=== PATIENT | female | born 1935 | race Hispanic/Latino ===

== ENCOUNTER 2018-03-09 18:40 | Inpatient (IN) | payer OTHER ==
[~2018-03-09] VITALS: Ht 162.6 cm; Wt 68.0 kg
[2018-03-09] MEDS ORDERED: Morphine Sulfate 4mg/ml Inj (IV USE ONLY) IVP ONE (18:45)
--- NOTE | 2018-03-09 18:51 | Emergency Room Report ---
History of Present Illness General Chief Complaint: Multiple Trauma/Fall Source: EMS, Caregiver Present Illness HPI Patient presents with a ground-level fall onto her left side. They alleged that there was no loss of consciousness. The patient is unable to ambulate and has left hip pain at this time. The patient has a history of dementia. No further history is obtainable. H/O HTN. Allegedly no fevers, NVD. Possible UTIs in the past. Allergies: Coded Allergies: No Known Allergies (Unverified , 03/09/18) Patient History Limited by: medical condition Past Medical History: see triage record, old chart reviewed Social History: Denies: smoking, alcohol use, drug use Social History Narrative assisted-living Last Menstrual Period: NA Now: No Reviewed Nursing Documentation: PMH: Agreed; PSxH: Agreed Nursing Documentation-PMH Past Medical History: No History, Except For Hx Hypertension: Yes Review of Systems All Other Systems: limited Physical Exam Vital Signs Date Time Temp Pulse Resp B/P (MAP) Pulse Ox O2 Delivery O2 Flow Rate FiO2 03/09/18 18:29 99.0 82 18 100/58 93 Room Air 99.0 Sp02 EP Interpretation: reviewed, normal General Appearance: well appearing, no apparent distress, alert Head: normocephalic, atraumatic Eyes: bilateral eye normal inspection, bilateral eye PERRL, bilateral eye EOMI ENT: moist mucus membranes Neck: supple, no bony tend Respiratory: lungs clear, normal breath sounds Cardiovascular #1: regular rate, rhythm Cardiovascular #2: 2+ radial (R) Gastrointestinal: normal inspection, normal bowel sounds, non tender, no mass, non-distended Musculoskeletal: back normal, pelvis stable, tender - Left hip with pain with movement with external rotation Neurologic: alert, motor strength/tone normal, DTRs symmetric, sensory intact, oriented - to name only Psychiatric: anxious Skin: normal inspection, warm/dry Medical Decision Making Diagnostic Impression: Primary Impression: Closed left hip fracture Qualified Codes: S72.002A - Fracture of unspecified part of neck of left femur , initial encounter for closed fracture Additional Impressions: Leukocytosis Qualified Codes: D72.829 - Elevated white blood cell count, unspecified Renal insufficiency Hyperglycemia ER Course Patient presents after a ground-level fall with external rotation and tenderness of the left hip. Differential includes contusion, hip fracture, pelvic fracture amongst others. The pelvis is stable and clinically this appears to be a hip fracture. Evaluation will be with EKG, chest x-ray and local x-rays with labs. A Zhou catheter will be placed for comfort. The patient will also be treated with morphine and Zofran. EKG without injury. CXR tortuous aorta. Pelvis and L hip with comminuted intratrochanteric fracture. Femur with abnormal appearance. WBC elevated. Elevated glucose and renal insufficiency. Presented to Dr. Lantigua who wants patient treated at our facility. Discussed with Dr. Reno. He requests no antibiotics for leukocytosis. No source of cause of elevated WBC. Images sent to Dr. Ramirez for consultation. Admit med. Laboratory Tests Test 03/09/18 19:50 03/09/18 21:10 03/09/18 21:16 White Blood Count 23.0 K/UL (4.8-10.8) *H Red Blood Count 3.34 M/UL (4.20-5.40) L Hemoglobin 11.3 G/DL (12.0-16.0) L Hematocrit 31.7 % (37.0-47.0) L Mean Corpuscular Volume 95 FL (80-99) Mean Corpuscular Hemoglobin 33.7 PG (27.0-31.0) H Mean Corpuscular Hemoglobin Concent 35.5 G/DL (32.0-36.0) Red Cell Distribution Width 11.0 % (11.6-14.8) L Platelet Count 243 K/UL (150-450) Mean Platelet Volume 6.6 FL (6.5-10.1) Neutrophils (%) (Auto) % (45.0-75.0) Lymphocytes (%) (Auto) % (20.0-45.0) Monocytes (%) (Auto) % (1.0-10.0) Eosinophils (%) (Auto) % (0.0-3.0) Basophils (%) (Auto) % (0.0-2.0) Differential Total Cells Counted 100 Neutrophils % (Manual) 89 % (45-75) H Lymphocytes % (Manual) 6 % (20-45) L Monocytes % (Manual) 2 % (1-10) Eosinophils % (Manual) 0 % (0-3) Basophils % (Manual) 1 % (0-2) Band Neutrophils 2 % (0-8) Platelet Estimate Adequate Platelet Morphology Normal Red Blood Cell Morphology Normal Sodium Level 135 MMOL/L (136-145) L Potassium Level 4.1 MMOL/L (3.5-5.1) Chloride Level 100 MMOL/L (98-107) Carbon Dioxide Level 23 MMOL/L (21-32) Anion Gap 12 mmol/L (5-15) Blood Urea Nitrogen 31 mg/dL (7-18) H Creatinine 1.8 MG/DL (0.55-1.30) H Estimate Glomerular Filtration Rate mL/min (>60) Glucose Level 185 MG/DL (74-106) H Calcium Level 10.0 MG/DL (8.5-10.1) Total Bilirubin 0.5 MG/DL (0.2-1.0) Aspartate Amino Transferase (AST) 86 U/L (15-37) H Alanine Aminotransferase (ALT) 77 U/L (12-78) Alkaline Phosphatase 115 U/L (46-116) Total Protein 7.2 G/DL (6.4-8.2) Albumin 3.2 G/DL (3.4-5.0) L Globulin 4.0 g/dL Albumin/Globulin Ratio 0.8 (1.0-2.7) L Prothrombin Time 10.8 SEC (9.30-11.50) Prothrombin Time INR 1.0 (0.9-1.1) PTT 24 SEC (23-33) Urine Color Yellow Urine Appearance Clear Urine pH 5 (4.5-8.0) Urine Specific [place] 1.015 (1.005-1.035) Urine Protein 2+ (NEGATIVE) H Urine Glucose (UA) Negative (NEGATIVE) Urine Ketones 2+ (NEGATIVE) H Urine Blood 1+ (NEGATIVE) H Urine Nitrite Negative (NEGATIVE) Urine Bilirubin Negative (NEGATIVE) Urine Urobilinogen Normal MG/DL (0.0-1.0) Urine Leukocyte Esterase 1+ (NEGATIVE) H Urine RBC 0-2 /HPF (0 - 2) Urine WBC 0-2 /HPF (0 - 2) Urine Squamous Epithelial Cells Occasional /LPF Urine Bacteria Occasional /HPF (NONE) EKG Diagnostic Results Rate: tachycardiac ST Segments: no acute changes Rhythm Strip Diag. Results EP Interpretation: yes Rhythm: no PVC's, no ectopy, other - Sinus tachycardia Chest X-Ray Diagnostic Results Chest X-Ray Diagnostic Results : Chest X-Ray Ordered: Yes # of Views/Limited/Complete: 1 View Indication: Other EP Interpretation: Yes Interpretation: no consolidation, no effusion, no pneumothorax, other - ectatic aorta Impression: Other Electronically Signed by: Electronically signed by Jamshid Monroe MD Other X-Ray Diagnostic Results Other X-Ray Diagnostic Results #1: X-Ray ordered: pelvis # of Views/Limited Vs Complete: 1 View Indication: Pain Interpretation: no soft tissue swelling, other - hip fx, no pelvic fx Impression: Other Electronically Signed by: Electronically signed by Jamshid Monroe MD Other X-Ray Diagnostic Results #2: X-Ray ordered: L hip # of Views/Limited Vs Complete: 3 View Indication: Pain Interpretation: no soft tissue swelling, other - fx, some hellen abnormalities Impression: Other Electronically Signed by: Electronically signed by Jamshid Monroe MD Last Vital Signs Date Time Temp Pulse Resp B/P (MAP) Pulse Ox O2 Delivery O2 Flow Rate FiO2 03/09/18 23:35 98.9 103 20 90/51 100 Room Air 98.9 Status: improved Disposition: ADMITTED INPATIENT Condition: Serious Jamshid Monroe M.D. Mar 09, 2018 18:51
[2018-03-09 20:09] LABS: HEMATOCRIT 31.7 % (37.0-47.0); HEMOGLOBIN 11.3 G/DL (12.0-16.0); MEAN CORPUSCULAR VOLUME 95 FL (80-99); PLATELET COUNT 243 K/UL (150-450); RED BLOOD COUNT 3.34 M/UL (4.20-5.40)
[2018-03-09 20:37] LABS: ANION GAP 12 mmol/L (5-15); BLOOD UREA NITROGEN 31 mg/dL (7-18); CARBON DIOXIDE 23 MMOL/L (21-32); CHLORIDE 100 MMOL/L (98-107); CREATININE 1.8 MG/DL (0.55-1.30); POTASSIUM 4.1 MMOL/L (3.5-5.1); SODIUM 135 MMOL/L (136-145)
[2018-03-09 20:45] LABS: ALANINE AMINOTRANSFERASE 77 U/L (12-78); ALBUMIN 3.2 G/DL (3.4-5.0); ALBUMIN/GLOBULIN RATIO 0.8 (1.0-2.7); ALKALINE PHOSPHATASE 115 U/L (46-116); ASPARTATE AMINO TRANSFERASE 86 U/L (15-37); BILIRUBIN,TOTAL 0.5 MG/DL (0.2-1.0)
[2018-03-09] MEDS ORDERED: Morphine Sulfate 4mg/ml Inj (IV USE ONLY) ONE (21:27)
[2018-03-09 21:30] LABS: APPEARANCE,URINE CLEAR; BILIRUBIN, URINE NEGATIVE (NEGATIVE); GLUCOSE, URINE (UA) NEGATIVE (NEGATIVE); KETONES,URINE 2+ (NEGATIVE); LEUKOCYTE ESTERASE ,URINE 1+ (NEGATIVE); NITRITE,URINE NEGATIVE (NEGATIVE); PH,URINE 5 (4.5-8.0); PROTEIN,URINE 2+ (NEGATIVE); UROBILINOGEN,URINE NORMAL MG/DL (0.0-1.0)
[2018-03-09 21:32] LABS: COLOR,URINE YELLOW
[2018-03-09 21:45] VITALS: BP 93/46
[2018-03-09] MEDS ORDERED: LISINOPRIL5 MG ORAL (21:51)
[2018-03-09] MEDS ORDERED: SIMVASTATIN10 MG ORAL (21:51)
[2018-03-09] MEDS ORDERED: [UNRECOGNIZED DRUG - CODE] PO (21:51)
[2018-03-09] MEDS ORDERED: FOLIC ACID1 MG ORAL (21:51)
[2018-03-09] MEDS ORDERED: MULTIVITAMINS1 EAC2 ORAL (21:54)
[2018-03-09] MEDS ORDERED: ASPIRIN81 MG ORAL (21:54)
[2018-03-09] MEDS ORDERED: OXYBUTYNIN CHLO10 MG PO (21:54)
[2018-03-09] MEDS ORDERED: LOTRISONE CREAM15 GM TP (21:54)
[2018-03-09] MEDS ORDERED: TRIAMTERENE-HC1 EAC5 ORAL (21:54)
[2018-03-09] MEDS ORDERED: LOPROX TOPIC (21:54)
[2018-03-09 23:35] VITALS: BP 90/51
[2018-03-09] MEDS ORDERED: Norco 5mg/325mg tab ORAL PRN (23:45)
[2018-03-09] MEDS ORDERED: Morphine Sulfate 2mg/ml Inj IVP PRN (23:45)
[2018-03-10] VITALS (13 sets, daily range): BP systolic 102–149; BP diastolic 47–64
--- NOTE | 2018-03-10 00:30 | Consultation ---
DATE OF CONSULTATION: 03/09/2018 CARDIOLOGY CONSULTATION CONSULTING PHYSICIAN: Jamshid Sutton M.D. REASON: Preoperative cardiovascular risk assessment. HISTORY OF PRESENT ILLNESS: This 82-year-old female took a ground level fall landing on her left side and complaining subsequently of pain and an inability to ambulate. She was brought to the emergency room and was noted to have a left intertrochanteric left hip fracture. The patient is unable to give any detailed history as she has underlying dementia. She answer simple questions, but the reliability is unclear. There was no apparent loss of consciousness, although historical data is sparse. PAST MEDICAL HISTORY: Includes hypertension, osteoarthritis, degenerative disk disease, osteoporosis, and hyperlipidemia. MEDICATIONS: Reviewed and reconciled. ALLERGIES: None known. SOCIAL HISTORY: No record of smoking, alcohol, or substance abuse. FAMILY HISTORY: Noncontributory. REVIEW OF SYSTEMS: Limited due to dementia as outlined above. PHYSICAL EXAMINATION: GENERAL: Lying flat, in no distress. She did receive morphine earlier. She has a temperature of 99 degrees. VITAL SIGNS: Blood pressure 100/58, pulse 82, and respirations 18. HEENT: Conjunctivae are pink. Sclerae are anicteric. Oropharynx clear. Mucous membranes moist. NECK: Supple. Jugular venous pressure ludy. LUNGS: Clear. CARDIAC: Regular rhythm and rate. Normal S1, S2. A 1/6 systolic murmur at base. ABDOMEN: Soft, nontender. CHEST WALL: Without deformity. BREASTS: Without discrete masses. EXTREMITIES: There is no open wound. There is some ecchymoses on the left side. There is internal rotation of the left hip. Distal pulses palpable and good perfusion of the digits. NEUROLOGIC: Reveals moderate cognitive impairment, but no focal deficits. LABORATORY AND DIAGNOSTIC DATA: EKG, sinus tachycardia, otherwise normal. Chest x-ray, no acute process, old, healed right rib fractures. White count 23 with a left shift, hemoglobin 11.3 with MCV 95, and platelet count of 243,000. Sodium is 135, potassium 4.1, bicarbonate 23, BUN 31, and creatinine 1.8. Albumin 3.2. IMPRESSION: 1. Mechanical fall. 2. Acute left hip fracture. 3. Leukocytosis with left shift and low-grade temperature. 4. Dementia. 5. Secondary sinus tachycardia. 6. Acute kidney injury. 7. Hypovolemia and dehydration. 8. Old, healed right rib fractures. PLAN: 1. Pain control. 2. Hydration. 3. Empiric antibiotics. 4. DVT prophylaxis. 5. Metabolic profile. 6. Continued anti-platelet therapy. 7. Preoperative beta-elio to follow. Jamshid Sutton M.D. DR: GLORIA JOB#: [id number] CC: RADHA
[2018-03-10] MEDS: cefTRIAXone 1 GM in D5W 55 ML IVPB SCH (00:58)
[2018-03-10] MEDS: Albuterol/Ipratropium 3ml neb HHN SCH ×4 (01:00→19:00)
[2018-03-10] MEDS: Heparin 5000 units/ml inj SUBQ SCH ×3 (05:09→21:11)
[2018-03-10 06:00] LABS: HEMATOCRIT 30.1 % (37.0-47.0); HEMOGLOBIN 10.9 G/DL (12.0-16.0); MEAN CORPUSCULAR VOLUME 92 FL (80-99); PLATELET COUNT 217 K/UL (150-450); RED BLOOD COUNT 3.25 M/UL (4.20-5.40); WHITE BLOOD COUNT 19.5 K/UL (4.8-10.8)
[2018-03-10 06:06] LABS: ANION GAP 9 mmol/L (5-15); BLOOD UREA NITROGEN 26 mg/dL (7-18); CALCIUM 9.1 MG/DL (8.5-10.1); CARBON DIOXIDE 25 MMOL/L (21-32); CHLORIDE 104 MMOL/L (98-107); CREATININE 1.2 MG/DL (0.55-1.30); SODIUM 138 MMOL/L (136-145)
[2018-03-10 06:19] LABS: ALANINE AMINOTRANSFERASE 72 U/L (12-78); ALBUMIN 3.1 G/DL (3.4-5.0); ALBUMIN/GLOBULIN RATIO 0.8 (1.0-2.7); ALKALINE PHOSPHATASE 108 U/L (46-116); ASPARTATE AMINO TRANSFERASE 76 U/L (15-37); BILIRUBIN,TOTAL 0.5 MG/DL (0.2-1.0)
[2018-03-10] MEDS: Aspirin Baby 81mg ORAL SCH (08:36)
[2018-03-10] MEDS ORDERED: celeBREX 200mg Cap **SURGERY PATIENTS ONLY ORAL SCH (09:00)
--- NOTE | 2018-03-10 09:59 | History & Physical ---
History and Physical History & Physicial HISTORY OF PRESENT ILLNESS: This 82-year-old female took a ground level fall landing on her left side and complaining subsequently of pain and an inability to ambulate. She was brought to the emergency room and was noted to have a left intertrochanteric left hip fracture. The patient is unable to give any detailed history as she has underlying dementia. She answer simple questions, but the reliability is unclear. There was no apparent loss of consciousness, although historical data is sparse. PAST MEDICAL HISTORY: Includes hypertension, osteoarthritis, degenerative disk disease, osteoporosis, and hyperlipidemia. MEDICATIONS: Reviewed and reconciled. ALLERGIES: None known. SOCIAL HISTORY: No record of smoking, alcohol, or substance abuse. FAMILY HISTORY: Noncontributory. REVIEW OF SYSTEMS: Limited due to dementia as outlined above. PHYSICAL EXAMINATION: GENERAL: Lying flat, in no distress. She did receive morphine earlier. She has a temperature of 99 degrees. VITAL SIGNS: Blood pressure 100/58, pulse 82, and respirations 18. HEENT: Conjunctivae are pink. Sclerae are anicteric. Oropharynx clear. Mucous membranes moist. NECK: Supple. Jugular venous pressure ludy. LUNGS: Clear. CARDIAC: Regular rhythm and rate. Normal S1, S2. A 1/6 systolic murmur at base. ABDOMEN: Soft, nontender. CHEST WALL: Without deformity. BREASTS: Without discrete masses. EXTREMITIES: There is no open wound. There is some ecchymoses on the left side. There is internal rotation of the left hip. Distal pulses palpable and good perfusion of the digits. NEUROLOGIC: Reveals moderate cognitive impairment, but no focal deficits. LABORATORY AND DIAGNOSTIC DATA: EKG, sinus tachycardia, otherwise normal. Chest x-ray, no acute process. White count 23 with a left shift, hemoglobin 11.3 with MCV 95, and platelet count of 243,000. Sodium is 135, potassium 4.1, bicarbonate 23, BUN 31, and creatinine 1.8. Albumin 3.2. IMPRESSION: 1. Mechanical fall. 2. Acute left hip fracture. 3. Leukocytosis with left shift and low-grade temperature. 4. Dementia. 5. Secondary sinus tachycardia. 6. Acute kidney injury. 7. Hypovolemia and dehydration. PLAN: 1. Pain control. 2. Hydration. 3. Empiric antibiotics. 4. DVT prophylaxis. 5. Metabolic profile. 6. Continued anti-platelet therapy. 7. Preoperative beta-elio added. Cleared for surgery. Rhoda Belcher Omar Syed MD Mar 10, 2018 09:59
--- NOTE | 2018-03-10 11:21 | Diagnostic Imaging Report ---
Indication: Pain, trauma Technique: One view of the pelvis, 2 views of the left hip Comparison: none Findings: There is a comminuted fracture of the intertrochanteric region of the left proximal femur. Fracture is slightly impacted, medial and lateral fragments are distracted. No associated pelvic fracture. No dislocations. Impression: Positive for left hip intertrochanteric fracture. Patient has been admitted and this agrees with the admitting diagnosis
--- NOTE | 2018-03-10 11:22 | Diagnostic Imaging Report ---
Indication: Pain, trauma Technique: One view of the chest Comparison: none Findings: The heart size is upper limits normal. The aorta is tortuous and ectatic. There are healed right rib fracture deformities. The lungs and pleural spaces are clear. Impression: No acute process
--- NOTE | 2018-03-10 15:26 | Consultation ---
Consult Note Consult Note I have been advised that there is no designated surrogate decision maker for Ella Marmolejo. HER HIP SURGERY IS URGENTLY AND EXPEDITIOUSLY REQUIRED IN ORDER TO PREVENT COMPLICATIONS ASSOCIATED WITH PROLONGED IMMOBILITY IT IS MY OPINION THAT THIS SURGERY SHOULD BE PERFORMED DESPITE THE FACT THAT NO ONE IS ABLE TO PROVIDE CONSENT MD Shadia DENG Omar Syed MD Mar 10, 2018 15:26
--- NOTE | 2018-03-10 15:29 | Anethesia Preoperative Eval ---
Anesthesia Pre-op PMH/ROS General Date of Evaluation: Mar 10, 2018 Time of Evaluation: 15:20 Anesthesiologist: Ulysses ASA Score: ASA 3 Mallampati Score Class I : Soft palate, uvula, fauces, pillars visible Class II: Soft palate, uvula, fauces visible Class III: Soft palate, base of uvula visible Class IV: Only hard plate visible Mallampati Classification: Class III Surgeon: James Diagnosis: Left hip fracture Surgical Procedure: ORIF left hip Allergies: Coded Allergies: No Known Allergies (Unverified , 03/09/18) Past Medical History Cardiovascular: Reports: HTN; Denies: CAD, [place], valve dz, arrhythmia, other Pulmonary: Denies: asthma, COPD, GIOVANA, other Gastrointestinal/Genitourinary: Denies: GERD, CRI, ESRD, other Neurologic/Psychiatric: Reports: dementia; Denies: CVA, depression/anxiety, TIA, other Endocrine: Denies: DM, hypothyroidism, steroids, other HEENT: Denies: cataract (L), cataract (R), glaucoma, [place] (L), W[place]ITA (R), other Hematology/Immune: Denies: anemia, DVT, bleeding disorder, other Musculoskeletal/Integumentary: Denies: OA, RA, DJD, DDD, edema, other PMH Narrative: HTN, dementia Anesthesia Pre-op Phys. Exam Physician Exam Last Vital Signs Date Time Temp Pulse Resp B/P (MAP) Pulse Ox O2 Delivery O2 Flow Rate FiO2 03/10/18 13:00 85 18 98 Room Air 21 03/10/18 12:00 99.9 102/54 (70) 99.9 Constitutional: NAD Neurologic: other - Difficult to assess in this patient suffering from dementia Cardiovascular: RRR, no M/R/G Respiratory: CTA Gastrointestinal: S/NT/ND Airway Exam Mallampati Score: Class III MO: full ROM: full Teeth: missing Anesthesia Pre-op A/P Labs Hematology Test 03/09/18 19:50 03/10/18 05:43 White Blood Count 23.0 K/UL (4.8-10.8) *H 19.5 K/UL (4.8-10.8) H Red Blood Count 3.34 M/UL (4.20-5.40) L 3.25 M/UL (4.20-5.40) L Hemoglobin 11.3 G/DL (12.0-16.0) L 10.9 G/DL (12.0-16.0) L Hematocrit 31.7 % (37.0-47.0) L 30.1 % (37.0-47.0) L Mean Corpuscular Volume 95 FL (80-99) 92 FL (80-99) Mean Corpuscular Hemoglobin 33.7 PG (27.0-31.0) H 33.4 PG (27.0-31.0) H Mean Corpuscular Hemoglobin Concent 35.5 G/DL (32.0-36.0) 36.1 G/DL (32.0-36.0) H Red Cell Distribution Width 11.0 % (11.6-14.8) L 11.0 % (11.6-14.8) L Platelet Count 243 K/UL (150-450) 217 K/UL (150-450) Mean Platelet Volume 6.6 FL (6.5-10.1) 7.1 FL (6.5-10.1) Neutrophils (%) (Auto) % (45.0-75.0) % (45.0-75.0) Lymphocytes (%) (Auto) % (20.0-45.0) % (20.0-45.0) Monocytes (%) (Auto) % (1.0-10.0) % (1.0-10.0) Eosinophils (%) (Auto) % (0.0-3.0) % (0.0-3.0) Basophils (%) (Auto) % (0.0-2.0) % (0.0-2.0) Differential Total Cells Counted 100 100 Neutrophils % (Manual) 89 % (45-75) H 80 % (45-75) H Lymphocytes % (Manual) 6 % (20-45) L 14 % (20-45) L Monocytes % (Manual) 2 % (1-10) 6 % (1-10) Eosinophils % (Manual) 0 % (0-3) 0 % (0-3) Basophils % (Manual) 1 % (0-2) 0 % (0-2) Band Neutrophils 2 % (0-8) 0 % (0-8) Platelet Estimate Adequate Adequate Platelet Morphology Normal Normal Red Blood Cell Morphology Normal Normal Coagulation Test 03/09/18 21:10 Prothrombin Time 10.8 SEC (9.30-11.50) Prothromb Time International Ratio 1.0 (0.9-1.1) Activated Partial Thromboplast Time 24 SEC (23-33) Chemistry Test 03/09/18 19:50 03/10/18 05:43 Sodium Level 135 MMOL/L (136-145) L 138 MMOL/L (136-145) Potassium Level 4.1 MMOL/L (3.5-5.1) 4.0 MMOL/L (3.5-5.1) Chloride Level 100 MMOL/L (98-107) 104 MMOL/L (98-107) Carbon Dioxide Level 23 MMOL/L (21-32) 25 MMOL/L (21-32) Anion Gap 12 mmol/L (5-15) 9 mmol/L (5-15) Blood Urea Nitrogen 31 mg/dL (7-18) H 26 mg/dL (7-18) H Creatinine 1.8 MG/DL (0.55-1.30) H 1.2 MG/DL (0.55-1.30) Estimat Glomerular Filtration Rate mL/min (>60) mL/min (>60) Glucose Level 185 MG/DL (74-106) H 143 MG/DL (74-106) H Calcium Level 10.0 MG/DL (8.5-10.1) 9.1 MG/DL (8.5-10.1) Total Bilirubin 0.5 MG/DL (0.2-1.0) 0.5 MG/DL (0.2-1.0) Aspartate Amino Transf (AST/SGOT) 86 U/L (15-37) H 76 U/L (15-37) H Alanine Aminotransferase (ALT/SGPT) 77 U/L (12-78) 72 U/L (12-78) Alkaline Phosphatase 115 U/L (46-116) 108 U/L (46-116) Total Protein 7.2 G/DL (6.4-8.2) 7.2 G/DL (6.4-8.2) Albumin 3.2 G/DL (3.4-5.0) L 3.1 G/DL (3.4-5.0) L Globulin 4.0 g/dL 4.1 g/dL Albumin/Globulin Ratio 0.8 (1.0-2.7) L 0.8 (1.0-2.7) L Magnesium Level 1.9 MG/DL (1.8-2.4) Pro-B-Type Natriuretic Peptide 528 pg/mL (0-125) H Vitamin B12 Level 624 PG/ML (193-986) Folate 60.8 NG/ML (8.6-58.9) H Thyroid Stimulating Hormone (TSH) 0.694 uiU/mL (0.358-3.740) Studies Pre-op Studies: EKG - Sinus tachycardia, echo - Diastolic dysfunction noted with decreased relaxation, with aortic regurgitation, some tricuspid regurg Risk Assessment & Plan Assessment: 82 yo female wih history of HTN and dementia now for ORIF left hip fracture secondary to fall. Plan: GA, LMA Status Change Before Surgery: No - Consent to be signed and faxed to the floor. Pre-Antibiotics Drug: Ancef Given Within 1 Hr of Incision: Yes Time Given: 18:00 Demian Arora MD Mar 10, 2018 15:29
[2018-03-10] MEDS ORDERED: fentaNYL 100 mcg/2 mL IV ONE (15:48)
[2018-03-10] MEDS ORDERED: Midazolam 2mg/2ml Inj ONE (15:48)
[2018-03-10] MEDS ORDERED: Lidocaine 1% MPF 10mg/ml 5ml ONE (15:50)
[2018-03-10] MEDS ORDERED: Propofol 200mg/20ml IV ONE (15:50)
[2018-03-10] MEDS ORDERED: Sodium Chloride 10ml vial INJ ONE (15:50)
[2018-03-10] MEDS ORDERED: Ketorolac 30mg Inj ONE (16:51)
[2018-03-10] MEDS ORDERED: Bupivacaine w/Epi 0.25% 30ml Vial INJ ONE (16:51)
[2018-03-10] MEDS ORDERED: Bacitracin 50000 Units Vial ONE (16:51)
[2018-03-10] MEDS ORDERED: Kenalog-40 1ml Vial ONE (16:51)
[2018-03-10] MEDS ORDERED: Morphine Sulfate PF 0 ML ONE (16:51)
[2018-03-10] MEDS ORDERED: NeoSporin Gu Irrig 1ml Amp IRRIG ONE (16:52)
[2018-03-10] MEDS ORDERED: NS Irrig 1000ml ONE (17:00)
[2018-03-10] MEDS ORDERED: LR 1000ml ONE (17:00)
[2018-03-10] MEDS ORDERED: Sterile Water Irrig 1000ml IRRIG ONE (17:00)
[2018-03-10] MEDS ORDERED: Esmolol 100mg/10ml Inj ONE (17:00)
--- NOTE | 2018-03-10 17:41 | Pre-Procedure Note/Attestation ---
Pre-Procedure Note/Attestation Complete Prior to Procedure Planned Procedure: left Procedure Narrative: hip orif Indications for Procedure Pre-Operative Diagnosis: left hip fracture Attestation I attest that I discussed the nature of the procedure; its benefits; risks and complications; and alternatives (and the risks and benefits of such alternatives ), prior to the procedure, with the patient (or the patient's legal advertising account representative). I attest that, if there was a reasonable possibility of needing a blood transfusion, the patient (or the patient's legal advertising account representative) was given the [facility] standardized written summary, pursuant to the Demian [place] Blood Safety Act ([place] Health and Safety Code # 1645, as amended). I attest that I re-evaluated the patient just prior to the surgery and that there has been no change in the patient's H&P, except as documented below: Florentino Ramirez MD Mar 10, 2018 17:41
--- NOTE | 2018-03-10 17:42 | Operative Note - PDOC ---
Operative Note Operative Note Pre-op Diagnosis: left hip fracture Procedure: left hip orif Post-op Diagnosis: same as pre-op plus Operative Findings: consistent w/pre-op dx studies Anesthesia: general Specimen: none Complications: none Condition: stable Estimated Blood Loss: none Implant(s) used?: Yes Florentino Ramirez MD Mar 10, 2018 17:41
[2018-03-10] MEDS: Docusate 100mg cap ORAL SCH (18:00)
[2018-03-10] MEDS: Docusate Sod/Senna tab ORAL SCH (18:00)
[2018-03-10] MEDS ORDERED: LR 1000ml 1,000 ML IVLG SCH (18:25)
--- NOTE | 2018-03-10 18:29 | Immediate Post-Op Evaluation ---
Immediate Post-Op Evalulation Immediate Post-Op Evalulation Procedure: ORIF left hip Date of Evaluation: Mar 10, 2018 Time of Evaluation: 17:25 IV Fluids: 600 Estimated Blood Loss: 50 Urinary Output: 100 Blood Pressure Systolic: 110 Blood Pressure Diastolic: 64 Pulse Rate: 105 Respiratory Rate: 16 O2 Sat by Pulse Oximetry: 99 Temperature (Fahrenheit): 98.4 Pain Score (1-10): 0 Nausea: No Vomiting: No Complications No complication Patient Status: reacts, patent, none Hydration Status: adequate Drug: Ancef Given Within 1 Hr of Incision: Yes Time Given: 18:00 Demian Arora MD Mar 10, 2018 18:29
[2018-03-10] MEDS ORDERED: LORazepam Inj 2mg/ml 1ml IV PRN (18:30)
--- NOTE | 2018-03-10 19:59 | Consultation ---
DATE OF CONSULTATION: 03/10/2018 NOTE: "POOR AUDIO QUALITY" ORTHOPEDIC CONSULTATION CONSULTING PHYSICIAN: Florentino Ramirez M.D. CHIEF COMPLAINT: Left hip pain. HISTORY OF PRESENT ILLNESS: The patient is an 82-year-old female, who was at longterm and had pain in the left hip. She was brought to the ER yesterday and diagnosed with left hip fracture. Orthopedic consultation was obtained for further care and recommendation. PAST MEDICAL HISTORY: Reviewed from the intake chart. SURGICAL HISTORY: Reviewed from the intake chart. MEDICATIONS: Reviewed from the intake chart. PHYSICAL EXAMINATION: GENERAL: The patient has cognitive impairment. EXTREMITIES: She has pain with of the left hip. IMAGING STUDIES: Show three-part intertrochanteric hip fracture. ASSESSMENT: Left three-part intertrochanteric hip fracture. DISCUSSION: At this point, we will go ahead and make her n.p.o. in anticipation of surgery later on today. She does not have the ability to consent for the surgery. She does have a [id number]. We will try to get nursing hydrochloric manufacturing supervisor to send over the consent for the surgery. We will proceed with surgery later on today. She is medically optimized for surgery. Florentino Ramirez M.D. DR: Paresh JOB#: [id number] CC:
[2018-03-10] MEDS ORDERED: HYDROmorphone 1mg/ml Carpuject SUBQ PRN (21:00)
[2018-03-10] MEDS ORDERED: HYDROcodone/Acetamin 7.5/325 tab ORAL PRN (21:00)
[2018-03-10] MEDS ORDERED: Norco 5mg/325mg tab ORAL PRN (21:00)
[2018-03-10] MEDS ORDERED: Milk of Magnesia 30ml Ud ORAL PRN (21:00)
[2018-03-10] MEDS: D5 1/2NS w/KCl 20mEq 1,000 ML IV SCH (21:05)
--- NOTE | 2018-03-10 21:14 | Operative Note - Dictated ---
DATE OF OPERATION: 03/10/2018 NOTE: "POOR AUDIO QUALITY" PREOPERATIVE DIAGNOSIS: Left three-part reverse obliquity intertrochanteric hip fracture. POSTOPERATIVE DIAGNOSIS: Left three-part reverse obliquity intertrochanteric hip fracture. PROCEDURE: Open reduction and internal fixation of left intertrochanteric/subtrochanteric femur fracture. SURGEON: Florentino Ramirez M.D. ANESTHESIA: General. INDICATION FOR PROCEDURE: The patient is a pleasant female, who resides in long term and had significant pain in the left hip. She had imaging studies which showed left hip fracture. She was indicated for operative fixation. DESCRIPTION OF PROCEDURE: After informed consent was obtained, the patient was brought to the operating room. The patient was placed under general anesthesia. The patient was then carefully placed in the position. Left hip was prepped and draped in sterile manner. Time-out was performed. Ancef was administered. A standard lateral skin incision was then made. A guidewire was placed in the proximal aspect of the femur. The proximal aspect of the femur was opened up along. A guidewire was then placed into the distal femur. Then sequential reaming up to 12 was performed. A 10 x 380 nail was selected and placed. Through a second stab incision, a guidewire was placed into the neck-head junction. A 90 mm screw was then selected and placed. Once that was completed, the targeting device for the distal locking screw was placed and a 50 mm distal locking screw was placed. The targeting device was removed. The wound was copiously irrigated. Hemostasis obtained using electrocautery. The skin was closed with #1 Vicryl suture, 2-0 Vicryl suture, and 3-0 Monocryl sutures. Compression dressing was applied. The patient was awoken and taken to recovery room with stable vital signs. ESTIMATED BLOOD LOSS: 50 mL. COMPLICATIONS: None. SPECIMENS: None. IMPLANTS: Include Freddy long gamma nail, 90 mm cannulated screw, and 50 mm distal locking screw. Florentino Ramirez M.D. DR: Paresh JOB#: [id number] CC:
--- NOTE | 2018-03-10 23:15 | Progress Note ---
DATE: 03/10/2018 CARDIOLOGY PROGRESS NOTE SUBJECTIVE: The patient is not in pain. She has no shortness of breath. OBJECTIVE: VITAL SIGNS: Blood pressure 122/47, heart rate 105, respiratory rate 20, temperature 99.7, oxygen saturation 99% on room air. HEENT: Oropharynx clear. LUNGS: Diminished breath sounds. HEART: Regular rhythm and rate. Normal S1, S2 with a fourth heart sound. ABDOMEN: Soft. EXTREMITIES: No edema. Left hip internally rotated. LABORATORY AND DIAGNOSTIC DATA: White count is 19.5, hemoglobin 10.9. Sodium 138, potassium 4, bicarbonate 25, BUN 26, creatinine 1.2. Albumin 3.1. B12, folate, and thyroid panel within normal limits. Chest x-ray on admission revealed no acute process, but old right hip fractures that were healed. IMPRESSION: 1. Acute left hip fracture due to mechanical fall. 2. Acute on chronic renal failure due to hypovolemia and dehydration, mostly corrected with IV fluid hydration overnight. 3. Leukocytosis with low-grade fevers and no obvious source of infection, now on empiric antibiotic. 4. History of hypertension, controlled. 5. No signs of acute congestive heart failure or acute coronary insufficiency. 6. Sinus tachycardia, recovering with hydration and pain control. PLAN: 1. Proceed with orthopedic surgery under general anesthesia with mildly increased perioperative cardiovascular risk. 2. Continue IV fluid hydration, pain control, and DVT prophylaxis. 3. Beta-elio prophylaxis will be added. Jamshid Sutton M.D. DR: Elma JOB#: [id number] CC:
[2018-03-11 00:06] VITALS: BP 115/60
[2018-03-11] MEDS: cefTRIAXone 1 GM in D5W 55 ML IVPB SCH (01:03)
[2018-03-11] MEDS: Albuterol/Ipratropium 3ml neb HHN SCH ×4 (01:58→19:08)
[2018-03-11] MEDS ORDERED: ceFAZolin sod 2 GM in D5W 110 ML IV SCH (02:00)
[2018-03-11] MEDS: ceFAZolin 2gm/50ml Premix 50 ML IV SCH ×2 (02:38→10:10)
[2018-03-11 04:17] VITALS: BP 113/56
[2018-03-11] MEDS: Heparin 5000 units/ml inj SUBQ SCH ×3 (05:38→21:41)
--- NOTE | 2018-03-11 06:15 | Consultation ---
DATE OF CONSULTATION: 03/10/2018 ADDENDUM Today, we sent off the consent for anesthesia and surgery to the [id number]. They were aware that the surgery is scheduled for 5 p.m. today, then will come back to us, but basically informed our nursing staff that there certainly would not be an issue to proceed with surgery. ASSESSMENT: Left intertrochanteric hip fracture. DISCUSSION: At this point, the patient has had a three-part intertrochanteric hip fracture. She is indicative of operative fixation for pain relief, decreased narcotic use, and early mobilization, but then has additional complications such as bed sores, decubitus ulcers, and DVT as well as pneumonia. At this point, although they have not received actual consent from [id number], I think it is medically reasonable to proceed with surgery as clearly indicated for the reasons, I have dictated previously. We will proceed with surgery as manner rather than try to hold off until we get a formal operative fixation consent. It is just a matter of care and potentially increase her potential complications. Florentino Ramirez M.D. DR: Paresh JOB#: [id number] CC:
[2018-03-11 08:00] VITALS: BP 110/73
[2018-03-11 08:10] LABS: HEMATOCRIT 20.6 % (37.0-47.0); HEMOGLOBIN 7.2 G/DL (12.0-16.0); MEAN CORPUSCULAR VOLUME 93 FL (80-99); PLATELET COUNT 168 K/UL (150-450); RED BLOOD COUNT 2.21 M/UL (4.20-5.40); RED CELL DISTRIBUTION WIDTH 10.9 % (11.6-14.8); WHITE BLOOD COUNT 20.5 K/UL (4.8-10.8)
[2018-03-11] MEDS: Aspirin Baby 81mg ORAL SCH (08:20)
[2018-03-11] MEDS: Docusate Sod/Senna tab ORAL SCH ×2 (08:20→17:13)
[2018-03-11] MEDS: Docusate 100mg cap ORAL SCH ×3 (08:20→17:13)
[2018-03-11] MEDS: Atenolol 25mg tab ORAL SCH (08:21)
[2018-03-11 08:24] LABS: ANION GAP 10 mmol/L (5-15); BLOOD UREA NITROGEN 18 mg/dL (7-18); CALCIUM 8.2 MG/DL (8.5-10.1); CARBON DIOXIDE 22 MMOL/L (21-32); CHLORIDE 107 MMOL/L (98-107); POTASSIUM 3.8 MMOL/L (3.5-5.1); SODIUM 139 MMOL/L (136-145)
[2018-03-11] MEDS: D5 1/2NS w/KCl 20mEq 1,000 ML IV SCH ×2 (11:31)
[2018-03-11 12:00] VITALS: BP 114/65
[2018-03-11] MEDS: Cefepime HCl 2 GM in D5W 55 ML IVPB SCH (12:04)
--- NOTE | 2018-03-11 12:48 | Diagnostic Imaging Report ---
INDICATION: Pain, intraoperative TECHNIQUE: Intraoperative imaging Fluoroscopy time: 43 seconds Total dose: 0.77795 mGym2 Total number of images: 5 COMPARISON: 03/09/2018 FINDINGS: Intraoperative images document surgical repair of intertrochanteric fracture with medullary allie and compression screw. IMPRESSION: Intraoperative imaging, as described
[2018-03-11] MEDS: Vancomycin 1gm/D5W 275ml IVPB SCH ×2 (13:13)
[2018-03-11 16:00] VITALS: BP 101/64
--- NOTE | 2018-03-11 16:23 | Diagnostic Imaging Report ---
Indication: Cough Technique: One view of the chest Comparison: 03/09/2018 Findings: Heart size is normal. There is tortuous. Upper mediastinum is unremarkable. Old healed rib fracture deformity again noted. There are minimal atelectatic changes are seen at the lung bases. Findings are overall unchanged Impression: No acute process
--- NOTE | 2018-03-11 16:38 | Pulmonology Progress Note ---
Assessment/Plan Assessment/Plan IMPRESSION: 1. Mechanical fall. 2. Acute left hip fracture. S/p ORIF 3. Leukocytosis with left shift and low-grade temperature. 4. Dementia. 5. Secondary sinus tachycardia. 6. Acute kidney injury. PLAN: 1. Pain control. 2. Hydration. 3. Empiric antibiotics. 4. DVT prophylaxis. 5. Metabolic profile. 6. Continued anti-platelet therapy. 7. Preoperative beta-elio added. 8. Start PT Dc planning Consider prbc transfusion Subjective Interval Events: S/p ORIF; Hgb decreased to 7.2 Constitutional: Reports: no symptoms HEENT: Repors: no symptoms Respiratory: Reports: no symptoms Cardiovascular: Reports: no symptoms Gastrointestinal/Abdominal: Reports: no symptoms Genitourinary: Reports: no symptoms Allergies: Coded Allergies: No Known Allergies (Unverified , 03/09/18) Objective Last 24 Hour Vital Signs Date Time Temp Pulse Resp B/P (MAP) Pulse Ox O2 Delivery O2 Flow Rate FiO2 03/11/18 13:16 Room Air 03/11/18 13:16 Room Air 03/11/18 12:00 98.7 68 22 114/65 (81) 95 98.7 03/11/18 08:43 Room Air Room Air 03/11/18 08:21 77 107/83 03/11/18 08:00 100.0 116 22 110/73 (85) 97 100.0 03/11/18 07:30 93 18 100 Room Air 21 03/11/18 07:20 21 03/11/18 07:20 85 16 Room Air 21 03/11/18 07:20 85 16 99 Room Air 21 03/11/18 04:17 97.2 128 19 113/56 (75) 97 97.2 03/11/18 01:59 119 20 98 Room Air 21 03/11/18 01:50 117 18 97 Room Air 21 03/11/18 00:06 99.1 125 18 115/60 (78) 98 99.1 03/10/18 21:00 Room Air Room Air 03/10/18 20:48 120 18 Room Air 21 03/10/18 20:37 99.9 120 16 114/58 (76) 96 99.9 03/10/18 19:50 98.1 102 19 117/54 98 Room Air 98.1 03/10/18 19:40 100 17 116/53 98 Room Air 03/10/18 19:34 Room Air 03/10/18 19:33 Room Air 03/10/18 19:25 113 17 109/62 98 Room Air 03/10/18 19:15 112 19 112/55 99 Room Air 03/10/18 19:07 107 15 115/58 99 Room Air 03/10/18 19:02 110 15 149/52 99 Room Air 03/10/18 19:01 209.1 105 16 99 03/10/18 18:57 98.4 105 16 110/64 99 Simple Mask 6 98.4 03/10/18 17:04 100.5 100.5 Intake and Output 03/10/18 03/11/18 19:00 07:00 Intake Total 1600 ml 630 ml Output Total 550 ml 300 ml Balance 1050 ml 330 ml Intake IV Total 1600 ml 630 ml Output Urine Total 500 ml 300 ml Estimated Blood Loss 50 ml # Voids 1 # Bowel Movements 1 General Appearance: no acute distress HEENT: normocephalic Respiratory/Chest: chest wall non-tender, lungs clear Cardiovascular: normal peripheral pulses, normal rate Abdomen: normal bowel sounds, soft, non tender Extremities: no cyanosis Laboratory Tests 03/11/18 07:00: White Blood Count 20.5H, Red Blood Count 2.21L, Hemoglobin 7.2#L, Hematocrit 20.6#L, Mean Corpuscular Volume 93, Mean Corpuscular Hemoglobin 32.7H, Mean Corpuscular Hemoglobin Concent 35.0, Red Cell Distribution Width 10.9L, Platelet Count 168, Mean Platelet Volume 7.1, Neutrophils (%) (Auto) , Lymphocytes (%) (Auto) , Monocytes (%) (Auto) , Eosinophils (%) (Auto) , Basophils (%) (Auto) , Differential Total Cells Counted 100, Neutrophils % ( Manual) 83H, Lymphocytes % (Manual) 9L, Monocytes % (Manual) 8, Eosinophils % ( Manual) 0, Basophils % (Manual) 0, Band Neutrophils 0, Platelet Estimate Adequate, Platelet Morphology Normal, Red Blood Cell Morphology Normal, Sodium Level 139, Potassium Level 3.8, Chloride Level 107, Carbon Dioxide Level 22, Anion Gap 10, Blood Urea Nitrogen 18, Creatinine 1.0, Estimat Glomerular Filtration Rate , Glucose Level 185H, Calcium Level 8.2L Current Medications Medications (Trade) Dose Ordered Sig/Anastasia Route PRN Reason Start Time Stop Time Status Last Admin Dose Admin Acetaminophen (Tylenol) 650 mg Q4H PRN ORAL Mild Pain/Temp > 100.5 03/10/18 00:00 04/09/18 00:00 Acetaminophen/ Hydrocodone Bitart ([place] 5/325) 2 tab Q6H PRN ORAL Severe Pain (Pain Scale 7-10) 03/10/18 21:00 03/17/18 20:59 Acetaminophen/ Hydrocodone Bitart ([place] 7.5/325) 1 tab Q4H PRN ORAL Moderate Pain (Pain Scale 4-6) 03/10/18 21:00 03/17/18 20:59 Albuterol/ Ipratropium (Albuterol/ Ipratropium) 3 ml Q6HRT HHN 03/10/18 01:00 03/15/18 00:59 03/11/18 07:29 Aspirin (ASA) 81 mg DAILY ORAL 03/10/18 09:00 04/09/18 08:59 03/11/18 08:20 Atenolol (Tenormin) 25 mg DAILY ORAL 03/11/18 09:00 04/10/18 08:59 03/11/18 08:21 Cefepime HCl 2 gm/ Dextrose 55 ml @ 110 mls/hr Q24H IVPB 03/11/18 12:00 03/18/18 11:59 03/11/18 12:04 Dextrose/ Electrolytes 1,000 ml @ 75 mls/hr [id number] IV 03/10/18 22:00 04/09/18 21:59 03/11/18 11:31 Docusate Sodium (Colace) 100 mg THREE TIMES A DAY ORAL 03/10/18 18:00 04/09/18 17:59 03/11/18 08:20 Famotidine (Pepcid) 20 mg DAILY ORAL 03/10/18 09:00 04/09/18 08:59 03/11/18 08:20 Folic Acid (Folate) 1 mg DAILY ORAL 03/10/18 09:00 04/09/18 08:59 03/11/18 08:20 Heparin Sodium (Porcine) (Heparin 5000 units/ml) 5,000 units Q8HR SUBQ 03/10/18 06:00 04/09/18 05:59 10/2/18 13:19 Hydromorphone HCl (Dilaudid) 1 mg Q4H PRN SUBQ BREAKTHROUGH PAIN 03/10/18 21:00 03/17/18 20:59 Magnesium Hydroxide (Mom) 30 ml DAILYPRN PRN ORAL Constipation 03/10/18 21:00 04/09/18 20:59 Meloxicam (Mobic) 7.5 mg DAILY ORAL 03/10/18 09:00 04/09/18 08:59 03/11/18 08:20 Multivitamins (Multivitamins) 1 tab DAILY ORAL 03/10/18 09:00 04/09/18 08:59 03/11/18 08:20 Ondansetron HCl (Zofran) 4 mg Q4H PRN IVP n/v 03/09/18 23:45 04/08/18 23:44 Pravastatin Sodium (Pravachol) 10 mg BEDTIME ORAL 03/10/18 00:00 04/09/18 00:00 Prochlorperazine (Compazine) 10 mg Q6H PRN IVP Nausea & Vomiting 03/10/18 21:00 04/09/18 20:59 Senna/Docusate Sodium (Tish-Colace) 1 tab TWICE A DAY ORAL 03/10/18 18:00 04/09/18 17:59 03/11/18 08:20 Vancomycin HCl (Vanco rx to dose) 1 ea DAILY PRN MISC Per rx protocol 03/11/18 10:45 04/10/18 10:44 Vancomycin HCl 1 gm/Dextrose 275 ml @ 183.708 mls/hr Q24H IVPB 03/11/18 14:00 03/16/18 13:59 03/11/18 13:13 Tony Reno MD Mar 11, 2018 16:38
--- NOTE | 2018-03-11 19:06 | Cardiology Report ---
APPROVED REPORT EKG Measurement Heart [id number] Sinus tachycardia Otherwise normal ECG
[2018-03-11 20:00] VITALS: BP 98/39
--- NOTE | 2018-03-11 22:45 | Consultation ---
DATE OF CONSULTATION: 03/11/2018 INFECTIOUS DISEASES CONSULTATION CONSULTING PHYSICIAN: Kaleb De La Torre M.D. REFERRING PHYSICIAN: Tony Reno M.D. REASON FOR CONSULTATION: Leukocytosis. HISTORY OF PRESENTING ILLNESS: This is an 82-year-old lady with history of hypertension, osteoporosis, arthritis, hyperlipidemia, who had a fall on the left side at the ground level and subsequently she had pain. She was found to have a left intertrochanteric hip fracture. She underwent open reduction and internal fixation and she was found to have leukocytosis and an Infectious Diseases consultation has been obtained for antibiotics. PAST MEDICAL HISTORY: 1. Hypertension. 2. Osteoarthritis. 3. DJD. 4. Osteoporosis. 5. Hyperlipidemia. SOCIAL HISTORY: No history of smoking, alcohol, or drug use. FAMILY HISTORY: Unknown. REVIEW OF SYSTEMS: Unable to obtain currently. MEDICATIONS: As an inpatient, she is on atenolol, Dilaudid, [place], Compazine, milk of magnesia, docusate, senna, aspirin, multivitamin, folic acid, famotidine, Mobic, subcutaneous heparin, albuterol, Pravachol, Tylenol, ceftriaxone, Zofran. ALLERGIES: No known drug allergies. PHYSICAL EXAMINATION: VITAL SIGNS: Temperature of 100, T-max of 100.6, pulse of 77, respiratory rate 22, blood pressure 107/83, O2 saturation of 97%. HEENT: Pupils equally reactive to light and accommodation. Mouth appears clean without thrush. NECK: Supple. No adenopathy. No JVD. CARDIOVASCULAR: Regular rate and rhythm. No murmurs. LUNGS: Clear to auscultation bilaterally. No crackles. No wheezes. ABDOMEN: Soft and nontender. No organomegaly. EXTREMITIES: No cyanosis, no clubbing, no edema. LABORATORY AND DIAGNOSTIC DATA: White count of 20.5, hemoglobin 7.2, hematocrit 20.6, MCV 93, platelet count of 168,000. Sodium 139, potassium 3.8, chloride 107, bicarbonate 22, BUN 18, creatinine 1. Creatinine was 1.8 on 03/09/2018. Glucose of 185, calcium 8.2, total bilirubin 0.5, AST 76, ALT 22, alkaline phosphatase 108. Beta-natriuretic peptide 528. Total protein 7.2, albumin 3.1. UA is showing 0-2 white cells. Chest x-ray on 03/09/2018, showed no acute process. Hip x-ray is showing left hip intertrochanteric fracture. ASSESSMENT: This is an 82-year-old lady with history of hypertension, who sustained a fall and had a left hip intertrochanteric fracture. She has undergone ORIF and now has leukocytosis. 1. It could be reactive after surgery. 2. We would like to rule out urinary tract infection or sepsis as a possibility. 3. Hypertension. PLAN: 1. We will start the patient on vancomycin and cefepime. 2. We will order blood cultures and urine cultures. 3. We will follow up cultures and adjust antibiotics accordingly. 4. We will order a repeat chest x-ray. 5. We will discontinue ceftriaxone. I would like to thank Dr. Reno for this consultation. Kaleb De La Torre M.D. DR: Joselo JOB#: [id number] CC: Tony Reno M.D.; Fax#: [phone]
[2018-03-12] VITALS (8 sets, daily range): BP systolic 93–124; BP diastolic 38–59
[2018-03-12] MEDS: Albuterol/Ipratropium 3ml neb HHN SCH ×4 (02:03→19:47)
--- NOTE | 2018-03-12 03:45 | Progress Note ---
DATE: 03/11/2018 CARDIOLOGY PROGRESS NOTE SUBJECTIVE: This patient is postop day #1 following ORIF. No shortness of breath. No chest pain. Pain seems to be controlled. OBJECTIVE: VITAL SIGNS: Blood pressure 114/65, pulse 68, and respiratory rate 22. LUNGS: Diminished breath sounds. No wheezing or rales. HEART: Regular rhythm and rate. Normal S1, S2. ABDOMEN: Soft. No edema. Surgical site clean and dry. LABORATORY DATA: White count 20.5 and hemoglobin 7.2. Potassium 3.8, BUN 18, and creatinine 1. IMPRESSION: 1. Mechanical fall with hip fracture, now status post ORIF. 2. Acute kidney injury with hypovolemia and dehydration, resolved. 3. Leukocytosis persists with no obvious source of infection, on empiric antibiotics. 4. Postoperative anemia. 5. 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 7. Cerebrovascular disease with dementia. 8. History of hyperlipidemia. PLAN: 1. Pain control. 2. Empiric antibiotics. 3. Antiplatelet therapy. 4. DVT prophylaxis. 5. Beta-elio prophylaxis. 6. Taper off IV fluids. 7. May need packed red blood cell transfusion. Jamshid Sutton M.D. DR: HAILEY JOB#: [id number] CC:
[2018-03-12] MEDS: Heparin 5000 units/ml inj SUBQ SCH ×3 (06:10→20:46)
--- NOTE | 2018-03-12 07:22 | Pulmonology Progress Note ---
Assessment/Plan Assessment/Plan IMPRESSION: 1. Mechanical fall. 2. Acute left hip fracture. S/p ORIF 3. Leukocytosis with left shift and low-grade temperature. 4. Dementia. 5. Secondary sinus tachycardia. 6. Acute kidney injury. PLAN: 1. Pain control. 2. Hydration. 3. Empiric antibiotics. Seen by ID 4. DVT prophylaxis. 5. Metabolic profile. 6. Continued anti-platelet therapy. 7. Preoperative beta-elio added. 8. Start PT Dc planning Consider prbc transfusion; await AM labs Subjective Interval Events: None; labs pending this AM Constitutional: Reports: no symptoms HEENT: Repors: no symptoms Respiratory: Reports: no symptoms Cardiovascular: Reports: no symptoms Genitourinary: Reports: no symptoms Allergies: Coded Allergies: No Known Allergies (Unverified , 03/09/18) Objective Last 24 Hour Vital Signs Date Time Temp Pulse Resp B/P (MAP) Pulse Ox O2 Delivery O2 Flow Rate FiO2 03/12/18 07:02 100 18 99 Room Air 21 03/12/18 07:01 98 20 Room Air 21 03/12/18 06:52 98 20 97 Room Air 21 03/12/18 05:50 98.9 98.9 03/12/18 04:00 100.4 88 18 100/42 (61) 94 100.4 03/12/18 02:00 91 18 96 Room Air 21 03/12/18 02:00 96 18 99 Room Air 21 03/12/18 00:00 99.9 100 20 93/38 (56) 93 99.9 03/11/18 22:09 99.9 03/11/18 21:39 101.0 03/11/18 21:00 Room Air Room Air 03/11/18 20:00 101.2 100 20 98/39 (58) 95 101.2 03/11/18 19:09 102 18 100 Room Air 21 03/11/18 19:00 94 16 Room Air 21 03/11/18 19:00 94 16 99 Room Air 21 03/11/18 16:00 98.7 96 17 101/64 (76) 95 98.7 03/11/18 13:16 Room Air 03/11/18 13:16 Room Air 03/11/18 12:00 98.7 68 22 114/65 (81) 95 98.7 03/11/18 08:43 Room Air Room Air 03/11/18 08:21 77 107/83 03/11/18 08:00 100.0 116 22 110/73 (85) 97 100.0 03/11/18 07:30 93 18 100 Room Air 21 Intake and Output 03/11/18 03/12/18 19:00 07:00 Intake Total 1000 ml 825 ml Output Total 500 ml Balance 500 ml 825 ml Intake Oral 100 ml 150 ml IV Total 900 ml 675 ml Output Urine Total 500 ml # Voids 2 # Bowel Movements 1 1 General Appearance: no acute distress HEENT: normocephalic Respiratory/Chest: chest wall non-tender, lungs clear Cardiovascular: normal peripheral pulses, normal rate Abdomen: normal bowel sounds Microbiology Date/Time Source Procedure Growth Status 03/10/18 05:43 Blood Blood Culture - Preliminary NO GROWTH AFTER 24 HOURS Resulted 03/10/18 05:30 Blood Blood Culture - Preliminary NO GROWTH AFTER 24 HOURS Resulted Current Medications Medications (Trade) Dose Ordered Sig/Anastasia Route PRN Reason Start Time Stop Time Status Last Admin Dose Admin Acetaminophen (Tylenol) 650 mg Q4H PRN ORAL Mild Pain/Temp > 100.5 03/10/18 00:00 04/09/18 00:00 03/11/18 21:39 Acetaminophen/ Hydrocodone Bitart ([place] 5/325) 2 tab Q6H PRN ORAL Severe Pain (Pain Scale 7-10) 03/10/18 21:00 03/17/18 20:59 Acetaminophen/ Hydrocodone Bitart ([place] 7.5/325) 1 tab Q4H PRN ORAL Moderate Pain (Pain Scale 4-6) 03/10/18 21:00 03/17/18 20:59 Albuterol/ Ipratropium (Albuterol/ Ipratropium) 3 ml Q6HRT HHN 03/10/18 01:00 03/15/18 00:59 03/12/18 06:58 Aspirin (ASA) 81 mg DAILY ORAL 03/10/18 09:00 04/09/18 08:59 03/11/18 08:20 Atenolol (Tenormin) 25 mg DAILY ORAL 03/11/18 09:00 04/10/18 08:59 03/11/18 08:21 Cefepime HCl 2 gm/ Dextrose 55 ml @ 110 mls/hr Q24H IVPB 03/11/18 12:00 03/18/18 11:59 03/11/18 12:04 Dextrose/ Electrolytes 1,000 ml @ 50 mls/hr Q20H IV 03/11/18 22:00 04/10/18 21:59 03/12/18 00:00 Docusate Sodium (Colace) 100 mg THREE TIMES A DAY ORAL 03/10/18 18:00 04/09/18 17:59 03/11/18 08:20 Famotidine (Pepcid) 20 mg DAILY ORAL 03/10/18 09:00 04/09/18 08:59 03/11/18 08:20 Folic Acid (Folate) 1 mg DAILY ORAL 03/10/18 09:00 04/09/18 08:59 03/11/18 08:20 Heparin Sodium (Porcine) (Heparin 5000 units/ml) 5,000 units Q8HR SUBQ 03/10/18 06:00 04/09/18 05:59 03/12/18 06:10 Hydromorphone HCl (Dilaudid) 1 mg Q4H PRN SUBQ BREAKTHROUGH PAIN 03/10/18 21:00 03/17/18 20:59 Magnesium Hydroxide (Mom) 30 ml DAILYPRN PRN ORAL Constipation 03/10/18 21:00 04/09/18 20:59 Meloxicam (Mobic) 7.5 mg DAILY ORAL 03/10/18 09:00 04/09/18 08:59 03/11/18 08:20 Multivitamins (Multivitamins) 1 tab DAILY ORAL 03/10/18 09:00 04/09/18 08:59 03/11/18 08:20 Ondansetron HCl (Zofran) 4 mg Q4H PRN IVP n/v 03/09/18 23:45 04/08/18 23:44 Pravastatin Sodium (Pravachol) 10 mg BEDTIME ORAL 03/10/18 00:00 04/09/18 00:00 03/11/18 21:00 Prochlorperazine (Compazine) 10 mg Q6H PRN IVP Nausea & Vomiting 03/10/18 21:00 04/09/18 20:59 Senna/Docusate Sodium (Tish-Colace) 1 tab TWICE A DAY ORAL 03/10/18 18:00 04/09/18 17:59 03/11/18 08:20 Vancomycin HCl (Vanco rx to dose) 1 ea DAILY PRN MISC Per rx protocol 03/11/18 10:45 04/10/18 10:44 Vancomycin HCl 1 gm/Dextrose 275 ml @ 183.708 mls/hr Q24H IVPB 03/11/18 14:00 03/16/18 13:59 03/11/18 13:13 Tony Reno MD Mar 12, 2018 07:22
[2018-03-12] MEDS ORDERED: MELOXICAM7.5 MG ORAL (07:24)
[2018-03-12] MEDS ORDERED: ATENOLOL25 MG ORAL (07:24)
[2018-03-12] MEDS ORDERED: NORCO 5-325 TA1 EACH ORAL (07:24)
[2018-03-12] MEDS ORDERED: LOVENOX10 M4 SUBQ (07:25)
[2018-03-12 08:00] LABS: MEAN CORPUSCULAR VOLUME 95 FL (80-99); PLATELET COUNT 151 K/UL (150-450); WHITE BLOOD COUNT 18.6 K/UL (4.8-10.8)
[2018-03-12 08:32] LABS: ANION GAP 7 mmol/L (5-15); BLOOD UREA NITROGEN 16 mg/dL (7-18); CALCIUM 8.2 MG/DL (8.5-10.1); CARBON DIOXIDE 24 MMOL/L (21-32); CHLORIDE 111 MMOL/L (98-107); CREATININE 0.9 MG/DL (0.55-1.30); SODIUM 142 MMOL/L (136-145)
[2018-03-12] MEDS: Atenolol 25mg tab ORAL SCH ×2 (09:00→10:04)
[2018-03-12] MEDS: Aspirin Baby 81mg ORAL SCH (09:57)
[2018-03-12] MEDS: Docusate Sod/Senna tab ORAL SCH ×2 (09:58→19:10)
[2018-03-12] MEDS: Docusate 100mg cap ORAL SCH ×3 (10:04→19:10)
--- NOTE | 2018-03-12 12:50 | Infectious Diseases Prog Note ---
Assessment/Plan Assessment/Plan A; Postoperative fever Leukocytosis Left hip fracture s/p ORIF Anemia Dementia P: Continue Vancomycin & Cefepime will f/u cultures Subjective ROS Limited/Unobtainable: Yes Allergies: Coded Allergies: No Known Allergies (Unverified , 03/09/18) Objective Vital Signs Last 24 Hour Vital Signs Date Time Temp Pulse Resp B/P (MAP) Pulse Ox O2 Delivery O2 Flow Rate FiO2 03/12/18 10:20 Room Air Room Air 03/12/18 08:42 98.8 102 24 108/45 (66) 96 98.8 03/12/18 07:02 100 18 99 Room Air 21 03/12/18 07:01 98 20 Room Air 21 03/12/18 06:52 98 20 97 Room Air 21 03/12/18 05:50 98.9 98.9 03/12/18 04:00 100.4 88 18 100/42 (61) 94 100.4 03/12/18 02:00 91 18 96 Room Air 21 03/12/18 02:00 96 18 99 Room Air 21 03/12/18 00:00 99.9 100 20 93/38 (56) 93 99.9 03/11/18 22:09 99.9 03/11/18 21:39 101.0 03/11/18 21:00 Room Air Room Air 03/11/18 20:00 101.2 100 20 98/39 (58) 95 101.2 03/11/18 19:09 102 18 100 Room Air 21 03/11/18 19:00 94 16 Room Air 21 03/11/18 19:00 94 16 99 Room Air 21 03/11/18 16:00 98.7 96 17 101/64 (76) 95 98.7 03/11/18 13:16 Room Air 03/11/18 13:16 Room Air Height (Feet): 5 Height (Inches): 4.00 Weight (Pounds): 150 General Appearance: no acute distress HEENT: mucous membranes moist Respiratory/Chest: lungs clear Cardiovascular: tachycardia Abdomen: soft, non tender Extremities: no edema, other - left hip dressing Neurologic/Psychiatric: alert, responsive Microbiology Date/Time Source Procedure Growth Status 03/10/18 05:43 Blood Blood Culture - Preliminary NO GROWTH AFTER 24 HOURS Resulted 03/10/18 05:30 Blood Blood Culture - Preliminary NO GROWTH AFTER 24 HOURS Resulted 03/09/18 22:18 Nasal Nares MRSA Culture - Final NO METHICILLIN RESISTANT STAPH AUREUS... Complete 03/11/18 11:20 Urine,Clean Catch Urine Culture - Preliminary NO GROWTH Resulted Laboratory Tests Test 03/12/18 07:00 White Blood Count 18.6 K/UL (4.8-10.8) H Red Blood Count 1.90 M/UL (4.20-5.40) L Hemoglobin 6.0 G/DL (12.0-16.0) *L Hematocrit 18.0 % (37.0-47.0) L Mean Corpuscular Volume 95 FL (80-99) Mean Corpuscular Hemoglobin 31.5 PG (27.0-31.0) H Mean Corpuscular Hemoglobin Concent 33.2 G/DL (32.0-36.0) Red Cell Distribution Width 11.0 % (11.6-14.8) L Platelet Count 151 K/UL (150-450) Mean Platelet Volume 7.2 FL (6.5-10.1) Neutrophils (%) (Auto) % (45.0-75.0) Lymphocytes (%) (Auto) % (20.0-45.0) Monocytes (%) (Auto) % (1.0-10.0) Eosinophils (%) (Auto) % (0.0-3.0) Basophils (%) (Auto) % (0.0-2.0) Differential Total Cells Counted 100 Neutrophils % (Manual) 83 % (45-75) H Lymphocytes % (Manual) 8 % (20-45) L Monocytes % (Manual) 7 % (1-10) Eosinophils % (Manual) 0 % (0-3) Basophils % (Manual) 1 % (0-2) Band Neutrophils 1 % (0-8) Platelet Estimate Adequate Platelet Morphology Normal Red Blood Cell Morphology Normal Sodium Level 142 MMOL/L (136-145) Potassium Level 4.0 MMOL/L (3.5-5.1) Chloride Level 111 MMOL/L (98-107) H Carbon Dioxide Level 24 MMOL/L (21-32) Anion Gap 7 mmol/L (5-15) Blood Urea Nitrogen 16 mg/dL (7-18) Creatinine 0.9 MG/DL (0.55-1.30) Estimat Glomerular Filtration Rate mL/min (>60) Glucose Level 126 MG/DL (74-106) H Calcium Level 8.2 MG/DL (8.5-10.1) L Magnesium Level 1.9 MG/DL (1.8-2.4) Pro-B-Type Natriuretic Peptide 642 pg/mL (0-125) H Current Medications Medications (Trade) Dose Ordered Sig/Anastasia Route PRN Reason Start Time Stop Time Status Last Admin Dose Admin Acetaminophen (Tylenol) 650 mg Q4H PRN ORAL Mild Pain/Temp > 100.5 03/10/18 00:00 04/09/18 00:00 03/11/18 21:39 Acetaminophen/ Hydrocodone Bitart ([place] 5/325) 2 tab Q6H PRN ORAL Severe Pain (Pain Scale 7-10) 03/10/18 21:00 03/17/18 20:59 Acetaminophen/ Hydrocodone Bitart ([place] 7.5/325) 1 tab Q4H PRN ORAL Moderate Pain (Pain Scale 4-6) 03/10/18 21:00 03/17/18 20:59 Albuterol/ Ipratropium (Albuterol/ Ipratropium) 3 ml Q6HRT HHN 03/10/18 01:00 03/15/18 00:59 03/12/18 06:58 Aspirin (ASA) 81 mg DAILY ORAL 03/10/18 09:00 04/09/18 08:59 03/12/18 09:57 Atenolol (Tenormin) 25 mg DAILY ORAL 03/11/18 09:00 04/10/18 08:59 03/11/18 08:21 Cefepime HCl 2 gm/ Dextrose 55 ml @ 110 mls/hr Q24H IVPB 03/11/18 12:00 03/18/18 11:59 03/11/18 12:04 Dextrose/ Electrolytes 1,000 ml @ 50 mls/hr Q20H IV 03/11/18 22:00 04/10/18 21:59 03/12/18 00:00 Docusate Sodium (Colace) 100 mg THREE TIMES A DAY ORAL 03/10/18 18:00 04/09/18 17:59 03/12/18 10:04 Famotidine (Pepcid) 20 mg DAILY ORAL 03/10/18 09:00 04/09/18 08:59 03/12/18 09:58 Folic Acid (Folate) 1 mg DAILY ORAL 03/10/18 09:00 04/09/18 08:59 03/12/18 10:04 Heparin Sodium (Porcine) (Heparin 5000 units/ml) 5,000 units Q8HR SUBQ 03/10/18 06:00 04/09/18 05:59 03/12/18 06:10 Hydromorphone HCl (Dilaudid) 1 mg Q4H PRN SUBQ BREAKTHROUGH PAIN 03/10/18 21:00 03/17/18 20:59 Magnesium Hydroxide (Mom) 30 ml DAILYPRN PRN ORAL Constipation 03/10/18 21:00 04/09/18 20:59 Meloxicam (Mobic) 7.5 mg DAILY ORAL 03/10/18 09:00 04/09/18 08:59 03/12/18 09:59 Multivitamins (Multivitamins) 1 tab DAILY ORAL 03/10/18 09:00 04/09/18 08:59 03/12/18 09:58 Ondansetron HCl (Zofran) 4 mg Q4H PRN IVP n/v 03/09/18 23:45 04/08/18 23:44 Pravastatin Sodium (Pravachol) 10 mg BEDTIME ORAL 03/10/18 00:00 04/09/18 00:00 03/11/18 21:00 Prochlorperazine (Compazine) 10 mg Q6H PRN IVP Nausea & Vomiting 03/10/18 21:00 04/09/18 20:59 Senna/Docusate Sodium (Tish-Colace) 1 tab TWICE A DAY ORAL 03/10/18 18:00 04/09/18 17:59 03/12/18 09:58 Vancomycin HCl (Vanco rx to dose) 1 ea DAILY PRN MISC Per rx protocol 03/11/18 10:45 04/10/18 10:44 Vancomycin HCl 1 gm/Dextrose 275 ml @ 183.708 mls/hr Q24H IVPB 03/11/18 14:00 03/16/18 13:59 03/11/18 13:13 Davide Graf MD Mar 12, 2018 12:50
[2018-03-12] MEDS: Cefepime HCl 2 GM in D5W 55 ML IVPB SCH (17:02)
[2018-03-12] MEDS: D5 1/2NS w/KCl 20mEq 1,000 ML IV SCH ×2 (18:00)
[2018-03-12] MEDS: Vancomycin 1gm/D5W 275ml IVPB SCH ×2 (18:39)
--- NOTE | 2018-03-12 19:41 | Cardiology Report ---
APPROVED REPORT EXAM: Two-dimensional and M-mode echocardiogram with Doppler and color Doppler. INDICATION CAD M-Mode DIMENSIONS IVSd1.6 (0.7-1.1cm)Left Atrium (MM)2.7 (1.6-4.0cm) LVDd4.3 (3.5-5.6cm)Aortic Root3.4 (2.0-3.7cm) PWd0.7 (0.7-1.1cm)Aortic Cusp Exc.1.8 (1.5-2.0cm) IVSs2.3 cm LVDs2.2 (2.5-4.0cm) PWs1.1 cm Technically difficult study due to poor acoustical windows. Normal left ventricular chamber size, hyperdynamic systolic function and wall motion to extent visualized. Left ventricular ejection fraction estimated to be 75 %. No evidence of left ventricular hypertrophy. Anterior Echo-free space, may be due to pericardial fat or effusion. Right atrial size at upper limits of normal. All other cardiac chamber sizes are within normal limits. Focal aortic valve sclerosis with adequate cusp excursion. Thickened mitral valve leaflets with normal excursion. Mitral annulus and aortic root calcification. Pulmonic valve not well visualized. Normal tricuspid valve structure. IVC at normal size with physiologic collapse. A color flow and spectral Doppler study was performed and revealed: Moderate aortic regurgitation. Trace to mild mitral regurgitation. Mitral diastolic velocities suggest reduced left ventricular relaxation c/w mild LV diastolic dysfunction (Grade I). Trace to mild tricuspid regurgitation. Tricuspid systolic velocities suggests peak right ventricular systolic pressure of 28 mmHg. Pulmonic regurgitation present.
--- NOTE | 2018-03-12 19:51 | Cardiology Report ---
APPROVED REPORT EKG Measurement Heart [id number] Sinus tachycardia Otherwise normal ECG
[2018-03-13] MEDS: Albuterol/Ipratropium 3ml neb HHN SCH ×4 (01:24→19:19)
[2018-03-13 02:05] VITALS: BP 135/73
[2018-03-13 02:25] VITALS: BP 135/73
[2018-03-13 04:00] VITALS: BP 138/58
--- NOTE | 2018-03-13 04:15 | Progress Note ---
DATE: 03/12/2018 CARDIOLOGY PROGRESS NOTE SUBJECTIVE: The patient is without shortness of breath. Blood pressure parameters are on the low side. OBJECTIVE: VITAL SIGNS: 100.4 degrees, blood pressure 93/38, pulse 120, and T-max 101 degrees. HEENT: Pale conjunctivae. LUNGS: Bilateral breath sounds. No rales. HEART: Regular rhythm. Rapid rate. Normal S1 and S2. ABDOMEN: Soft. EXTREMITIES: No edema. Surgical site clean and dry. LABORATORY DATA: White count is 18.6 and hemoglobin 6. Potassium 4, BUN 16, and creatinine 0.9. Pro-natriuretic peptide 642. IMPRESSION: 1. Postoperative anemia. 2. Secondary sinus tachycardia and hypotension. 3. Hip fracture, status post open reduction and internal fixation. PLAN: 1. Packed red blood cell transfusion. 2. Nasal oxygen. 3. Continue beta-blockade. 4. Wound care. 5. Pain control. 6. DVT prophylaxis. Jamshid Sutton M.D. DR: TRE JOB#: [id number] CC:
[2018-03-13] MEDS: Heparin 5000 units/ml inj SUBQ SCH ×2 (05:13→13:40)
[2018-03-13 07:59] LABS: BASOPHILS % (AUTO) 1.1 % (0.0-2.0); EOSINOPHILS % (AUTO) 2.7 % (0.0-3.0); HEMATOCRIT 26.4 % (37.0-47.0); LYMPHOCYTES % (AUTO) 14.8 % (20.0-45.0); MEAN CORPUSCULAR VOLUME 91 FL (80-99); MONOCYTES % (AUTO) 7.9 % (1.0-10.0); NEUTROPHILS % (AUTO) 73.6 % (45.0-75.0); PLATELET COUNT 166 K/UL (150-450); RED BLOOD COUNT 2.89 M/UL (4.20-5.40); RED CELL DISTRIBUTION WIDTH 11.8 % (11.6-14.8); WHITE BLOOD COUNT 15.8 K/UL (4.8-10.8)
[2018-03-13 08:00] VITALS: BP 150/69
[2018-03-13] MEDS: Docusate Sod/Senna tab ORAL SCH ×2 (08:38→17:22)
[2018-03-13] MEDS: Aspirin Baby 81mg ORAL SCH (08:38)
[2018-03-13] MEDS: Atenolol 25mg tab ORAL SCH (08:38)
[2018-03-13] MEDS: Docusate 100mg cap ORAL SCH ×3 (08:38→17:22)
--- NOTE | 2018-03-13 09:13 | Pulmonology Progress Note ---
Assessment/Plan Assessment/Plan IMPRESSION: 1. Mechanical fall. 2. Acute left hip fracture. S/p ORIF 3. Leukocytosis with left shift and low-grade temperature. 4. Dementia. 5. Secondary sinus tachycardia. 6. Acute kidney injury. PLAN: 1. Pain control. 2. Will dc IV fluids 3. Empiric antibiotics. Seen by ID; will switch to PO 4. DVT prophylaxis. 5. Metabolic profile. 6. Continued anti-platelet therapy. 7. Preoperative beta-elio added. 8. Continue PT 9. DC to SNF Subjective Interval Events: None; low grade fever; WBC 15K Constitutional: Reports: no symptoms HEENT: Repors: no symptoms Respiratory: Reports: no symptoms Cardiovascular: Reports: no symptoms Gastrointestinal/Abdominal: Reports: no symptoms Genitourinary: Reports: no symptoms Allergies: Coded Allergies: No Known Allergies (Unverified , 03/09/18) Objective Last 24 Hour Vital Signs Date Time Temp Pulse Resp B/P (MAP) Pulse Ox O2 Delivery O2 Flow Rate FiO2 03/13/18 08:38 92 150/69 03/13/18 08:15 Room Air Room Air 03/13/18 08:09 92 20 95 Room Air 21 03/13/18 08:00 99.7 91 18 150/69 (96) 98 99.7 03/13/18 04:00 99.1 92 18 138/58 (84) 97 99.1 03/13/18 02:05 98.5 99 20 135/73 (93) 98 98.5 03/13/18 01:34 86 18 99 Room Air 21 03/13/18 01:24 86 18 96 Room Air 21 03/12/18 22:40 99.8 105 20 98/47 (64) 96 99.8 03/12/18 22:25 99.8 03/12/18 22:25 99.8 105 20 98/47 (64) 96 99.8 03/12/18 21:33 99.8 03/12/18 20:41 Room Air Room Air 03/12/18 20:00 99.8 101 20 122/59 (80) 96 99.8 03/12/18 19:56 105 20 99 Room Air 21 03/12/18 19:46 104 20 96 Room Air 21 03/12/18 18:00 99.7 99.7 03/12/18 16:01 100.8 10/3/18 16:00 100.8 95 22 124/53 (76) 95 100.8 03/12/18 13:59 99 18 99 Room Air 21 03/12/18 13:49 95 18 97 Room Air 21 03/12/18 12:00 98.1 100 24 110/55 (73) 99 98.1 03/12/18 10:20 Room Air Room Air Intake and Output 03/12/18 03/13/18 19:00 07:00 Intake Total 891.292 ml 748.708 ml Balance 891.292 ml 748.708 ml Intake Oral 550 ml 240 ml IV Total 341.292 ml 508.708 ml # Voids 2 2 # Bowel Movements 2 General Appearance: no acute distress HEENT: normocephalic Respiratory/Chest: chest wall non-tender, lungs clear Cardiovascular: normal peripheral pulses, normal rate Abdomen: normal bowel sounds Microbiology Date/Time Source Procedure Growth Status 03/11/18 12:15 Blood Blood Culture - Preliminary NO GROWTH AFTER 24 HOURS Resulted 03/11/18 11:20 Urine,Clean Catch Urine Culture - Preliminary NO GROWTH Resulted Laboratory Tests 03/13/18 07:05: White Blood Count 15.8H, Red Blood Count 2.89L, Hemoglobin 9.0#L, Hematocrit 26.4#L, Mean Corpuscular Volume 91, Mean Corpuscular Hemoglobin 31.2H, Mean Corpuscular Hemoglobin Concent 34.1, Red Cell Distribution Width 11.8, Platelet Count 166, Mean Platelet Volume 7.1, Neutrophils (%) (Auto) 73.6, Lymphocytes (% ) (Auto) 14.8L, Monocytes (%) (Auto) 7.9, Eosinophils (%) (Auto) 2.7, Basophils (%) (Auto) 1.1, Sodium Level [Pending], Potassium Level [Pending], Chloride Level [Pending], Carbon Dioxide Level [Pending], Blood Urea Nitrogen [Pending], Creatinine [Pending], Estimat Glomerular Filtration Rate [Pending], Glucose Level [Pending], Calcium Level [Pending] Current Medications Medications (Trade) Dose Ordered Sig/Anastasia Route PRN Reason Start Time Stop Time Status Last Admin Dose Admin Acetaminophen (Tylenol) 650 mg Q4H PRN ORAL Mild Pain/Temp > 100.5 03/10/18 00:00 04/09/18 00:00 03/12/18 21:33 Acetaminophen/ Hydrocodone Bitart ([place] 5/325) 2 tab Q6H PRN ORAL Severe Pain (Pain Scale 7-10) 03/10/18 21:00 03/17/18 20:59 Acetaminophen/ Hydrocodone Bitart ([place] 7.5/325) 1 tab Q4H PRN ORAL Moderate Pain (Pain Scale 4-6) 03/10/18 21:00 03/17/18 20:59 Albuterol/ Ipratropium (Albuterol/ Ipratropium) 3 ml Q6HRT HHN 03/10/18 01:00 03/15/18 00:59 03/13/18 08:09 Aspirin (ASA) 81 mg DAILY ORAL 03/10/18 09:00 04/09/18 08:59 03/13/18 08:38 Atenolol (Tenormin) 25 mg DAILY ORAL 03/11/18 09:00 04/10/18 08:59 03/13/18 08:38 Cefepime HCl 2 gm/ Dextrose 55 ml @ 110 mls/hr Q24H IVPB 03/11/18 12:00 03/18/18 11:59 03/12/18 17:02 Dextrose/ Electrolytes 1,000 ml @ 50 mls/hr Q20H IV 03/11/18 22:00 04/10/18 21:59 03/12/18 00:00 Docusate Sodium (Colace) 100 mg THREE TIMES A DAY ORAL 03/10/18 18:00 04/09/18 17:59 03/13/18 08:38 Famotidine (Pepcid) 20 mg DAILY ORAL 03/10/18 09:00 04/09/18 08:59 03/13/18 08:38 Folic Acid (Folate) 1 mg DAILY ORAL 03/10/18 09:00 04/09/18 08:59 03/13/18 08:38 Heparin Sodium (Porcine) (Heparin 5000 units/ml) 5,000 units Q8HR SUBQ 03/10/18 06:00 04/09/18 05:59 03/12/18 06:10 Hydromorphone HCl (Dilaudid) 1 mg Q4H PRN SUBQ BREAKTHROUGH PAIN 03/10/18 21:00 03/17/18 20:59 Magnesium Hydroxide (Mom) 30 ml DAILYPRN PRN ORAL Constipation 03/10/18 21:00 04/09/18 20:59 Meloxicam (Mobic) 7.5 mg DAILY ORAL 03/10/18 09:00 04/09/18 08:59 03/13/18 08:38 Multivitamins (Multivitamins) 1 tab DAILY ORAL 03/10/18 09:00 04/09/18 08:59 03/13/18 08:38 Ondansetron HCl (Zofran) 4 mg Q4H PRN IVP n/v 03/09/18 23:45 04/08/18 23:44 Pravastatin Sodium (Pravachol) 10 mg BEDTIME ORAL 03/10/18 00:00 04/09/18 00:00 03/12/18 21:33 Prochlorperazine (Compazine) 10 mg Q6H PRN IVP Nausea & Vomiting 03/10/18 21:00 04/09/18 20:59 Senna/Docusate Sodium (Tish-Colace) 1 tab TWICE A DAY ORAL 03/10/18 18:00 04/09/18 17:59 03/13/18 08:38 Vancomycin HCl (Vanco rx to dose) 1 ea DAILY PRN MISC Per rx protocol 03/11/18 10:45 04/10/18 10:44 Vancomycin HCl 1 gm/Dextrose 275 ml @ 183.708 mls/hr Q24H IVPB 03/11/18 14:00 03/16/18 13:59 03/12/18 18:39 Tony Reno MD Mar 13, 2018 09:13
[2018-03-13] MEDS ORDERED: LEVAQUIN500 MG ORAL (09:14)
[2018-03-13 09:52] LABS: ANION GAP 8 mmol/L (5-15); BLOOD UREA NITROGEN 13 mg/dL (7-18); CALCIUM 8.1 MG/DL (8.5-10.1); CARBON DIOXIDE 22 MMOL/L (21-32); CHLORIDE 111 MMOL/L (98-107); CREATININE 0.8 MG/DL (0.55-1.30); POTASSIUM 4.3 MMOL/L (3.5-5.1); SODIUM 141 MMOL/L (136-145)
--- NOTE | 2018-03-13 11:15 | Infectious Diseases Prog Note ---
Assessment/Plan Assessment/Plan antibiotics : vancomycin iv, cefepime A 1. leucocytosis improving 2. s/p fall 3. left hip intertrochanteric fracture s/p ORIF 4. hypertension p 1. d/c vancomycin, cefepime 2. observe off antibiotics Subjective ROS Limited/Unobtainable: Yes Allergies: Coded Allergies: No Known Allergies (Unverified , 03/09/18) Objective Vital Signs Last 24 Hour Vital Signs Date Time Temp Pulse Resp B/P (MAP) Pulse Ox O2 Delivery O2 Flow Rate FiO2 03/13/18 08:38 92 150/69 03/13/18 08:19 94 20 98 Room Air 21 03/13/18 08:15 Room Air Room Air 03/13/18 08:09 92 20 95 Room Air 21 03/13/18 08:00 99.7 91 18 150/69 (96) 98 99.7 03/13/18 04:00 99.1 92 18 138/58 (84) 97 99.1 03/13/18 02:05 98.5 99 20 135/73 (93) 98 98.5 03/13/18 01:34 86 18 99 Room Air 21 03/13/18 01:24 86 18 96 Room Air 21 03/12/18 22:40 99.8 105 20 98/47 (64) 96 99.8 03/12/18 22:25 99.8 03/12/18 22:25 99.8 105 20 98/47 (64) 96 99.8 03/12/18 21:33 99.8 03/12/18 20:41 Room Air Room Air 03/12/18 20:00 99.8 101 20 122/59 (80) 96 99.8 03/12/18 19:56 105 20 99 Room Air 21 03/12/18 19:46 104 20 96 Room Air 21 03/12/18 18:00 99.7 99.7 03/12/18 16:01 100.8 03/12/18 16:00 100.8 95 22 124/53 (76) 95 100.8 03/12/18 13:59 99 18 99 Room Air 21 03/12/18 13:49 95 18 97 Room Air 21 03/12/18 12:00 98.1 100 24 110/55 (73) 99 98.1 Height (Feet): 5 Height (Inches): 4.00 Weight (Pounds): 150 Respiratory/Chest: lungs clear Cardiovascular: normal rate, regular rhythm, no gallop/murmur Abdomen: soft, non tender Extremities: no edema, other - left hip in dressings Microbiology Date/Time Source Procedure Growth Status 03/11/18 12:15 Blood Blood Culture - Preliminary NO GROWTH AFTER 24 HOURS Resulted 03/11/18 11:20 Urine,Clean Catch Urine Culture - Preliminary NO GROWTH AFTER 24 HOURS Resulted Laboratory Tests Test 03/13/18 07:05 White Blood Count 15.8 K/UL (4.8-10.8) H Red Blood Count 2.89 M/UL (4.20-5.40) L Hemoglobin 9.0 G/DL (12.0-16.0) #L Hematocrit 26.4 % (37.0-47.0) #L Mean Corpuscular Volume 91 FL (80-99) Mean Corpuscular Hemoglobin 31.2 PG (27.0-31.0) H Mean Corpuscular Hemoglobin Concent 34.1 G/DL (32.0-36.0) Red Cell Distribution Width 11.8 % (11.6-14.8) Platelet Count 166 K/UL (150-450) Mean Platelet Volume 7.1 FL (6.5-10.1) Neutrophils (%) (Auto) 73.6 % (45.0-75.0) Lymphocytes (%) (Auto) 14.8 % (20.0-45.0) L Monocytes (%) (Auto) 7.9 % (1.0-10.0) Eosinophils (%) (Auto) 2.7 % (0.0-3.0) Basophils (%) (Auto) 1.1 % (0.0-2.0) Sodium Level 141 MMOL/L (136-145) Potassium Level 4.3 MMOL/L (3.5-5.1) Chloride Level 111 MMOL/L (98-107) H Carbon Dioxide Level 22 MMOL/L (21-32) Anion Gap 8 mmol/L (5-15) Blood Urea Nitrogen 13 mg/dL (7-18) Creatinine 0.8 MG/DL (0.55-1.30) Estimat Glomerular Filtration Rate mL/min (>60) Glucose Level 107 MG/DL (74-106) H Calcium Level 8.1 MG/DL (8.5-10.1) L Current Medications Medications (Trade) Dose Ordered Sig/Anastasia Route PRN Reason Start Time Stop Time Status Last Admin Dose Admin Acetaminophen (Tylenol) 650 mg Q4H PRN ORAL Mild Pain/Temp > 100.5 03/10/18 00:00 04/09/18 00:00 03/12/18 21:33 Acetaminophen/ Hydrocodone Bitart ([place] 5/325) 2 tab Q6H PRN ORAL Severe Pain (Pain Scale 7-10) 03/10/18 21:00 03/17/18 20:59 Acetaminophen/ Hydrocodone Bitart ([place] 7.5/325) 1 tab Q4H PRN ORAL Moderate Pain (Pain Scale 4-6) 03/10/18 21:00 03/17/18 20:59 Albuterol/ Ipratropium (Albuterol/ Ipratropium) 3 ml Q6HRT HHN 03/10/18 01:00 03/15/18 00:59 03/13/18 08:09 Aspirin (ASA) 81 mg DAILY ORAL 03/10/18 09:00 04/09/18 08:59 03/13/18 08:38 Atenolol (Tenormin) 25 mg DAILY ORAL 03/11/18 09:00 04/10/18 08:59 03/13/18 08:38 Cefepime HCl 2 gm/ Dextrose 55 ml @ 110 mls/hr Q24H IVPB 03/11/18 12:00 03/18/18 11:59 03/12/18 17:02 Docusate Sodium (Colace) 100 mg THREE TIMES A DAY ORAL 03/10/18 18:00 04/09/18 17:59 03/13/18 08:38 Famotidine (Pepcid) 20 mg DAILY ORAL 03/10/18 09:00 04/09/18 08:59 03/13/18 08:38 Folic Acid (Folate) 1 mg DAILY ORAL 03/10/18 09:00 04/09/18 08:59 03/13/18 08:38 Heparin Sodium (Porcine) (Heparin 5000 units/ml) 5,000 units Q8HR SUBQ 03/10/18 06:00 04/09/18 05:59 03/12/18 06:10 Hydromorphone HCl (Dilaudid) 1 mg Q4H PRN SUBQ BREAKTHROUGH PAIN 03/10/18 21:00 03/17/18 20:59 Magnesium Hydroxide (Mom) 30 ml DAILYPRN PRN ORAL Constipation 03/10/18 21:00 04/09/18 20:59 Meloxicam (Mobic) 7.5 mg DAILY ORAL 03/10/18 09:00 04/09/18 08:59 03/13/18 08:38 Multivitamins (Multivitamins) 1 tab DAILY ORAL 03/10/18 09:00 04/09/18 08:59 03/13/18 08:38 Ondansetron HCl (Zofran) 4 mg Q4H PRN IVP n/v 03/09/18 23:45 04/08/18 23:44 Pravastatin Sodium (Pravachol) 10 mg BEDTIME ORAL 03/10/18 00:00 04/09/18 00:00 03/12/18 21:33 Prochlorperazine (Compazine) 10 mg Q6H PRN IVP Nausea & Vomiting 03/10/18 21:00 04/09/18 20:59 Senna/Docusate Sodium (Tish-Colace) 1 tab TWICE A DAY ORAL 03/10/18 18:00 04/09/18 17:59 03/13/18 08:38 Vancomycin HCl (Vanco rx to dose) 1 ea DAILY PRN MISC Per rx protocol 03/11/18 10:45 04/10/18 10:44 Vancomycin HCl 1 gm/Dextrose 275 ml @ 183.708 mls/hr Q24H IVPB 03/11/18 14:00 03/16/18 13:59 03/12/18 18:39 NEIL YAO Mar 13, 2018 11:15
[2018-03-13 11:47] VITALS: BP 124/83
[2018-03-13 16:00] VITALS: BP 134/59
--- NOTE | 2018-03-14 06:00 | Progress Note ---
DATE: 03/13/2018 CARDIOLOGY PROGRESS NOTE SUBJECTIVE: The patient is status post ORIF of the hip fracture. She continues to have low-grade temperatures. No shortness of breath or chest pain. Oxygen saturations 95% to 98% on room air. OBJECTIVE: VITAL SIGNS: Blood pressure 138/58 to 150/69, heart rate 90, respiratory rate 18 to 20. LUNGS: Diminished breath sounds. No wheezing, rales, or rhonchi. HEART: Regular rhythm and rate. Normal S1, S2 with a fourth heart sound. ABDOMEN: Soft. EXTREMITIES: No edema. Surgical site clean and dry. Distal pulses intact. LABORATORY STUDIES: White count 16.8, hemoglobin 9, potassium 4.3. IMPRESSION: 1. Acute hip fracture status post ORIF due to mechanical fall. 2. Leukocytosis improving. No signs of sepsis. 3. Anemia postoperatively hemoglobin level. PLAN: 1. DVT prophylaxis. 2. Antimicrobials per Infectious Disease healthcare network consultant. 3. Vitamin supplementations including iron. 4. Transfuse for hemoglobin less than 8 g. 5. Mobilize pain control as needed. 6. Stable for her to transfer to longterm facility from cardiovascular standpoint. Jamshid Sutton M.D. DR: KAREN JOB#: [id number] CC:
--- NOTE | 2018-03-14 14:04 | Discharge Summary ---
Discharge Summary Discharge Summary _ DATE OF ADMISSION: 03/09/2018 DATE OF DISCHARGE: 03/13/2018 CONSULTANTS: Dr. Jamshid Ramirez BRIEF HOSPITAL COURSE: Patient's an 82-year-old female, who took a ground level fall landing on her left side complained of pain and inability to ambulate. She was taken to the emergency room and was noted to have left intertrochanteric left hip fracture. She has medical history of hypertension, osteoarthritis, degenerative disc disease, osteoporosis and hyperlipidemia. On evaluation at ED blood work showed white count elevated to 23 with left shift. Hemoglobin 11.3 with MCV 95, platelet count of 243. Sodium was 135, potassium 4.1, BUN 31, creatinine 1.8. EKG was in sinus tachycardia, otherwise normal. Chest x-ray showed no acute process. She was then admitted for evaluation of mechanical fall and acute left hip fracture. She was given pain control and IV hydration. She was given empiric antibiotics. Cardiac evaluation was done. Patient underwent orthopedic evaluation. Patient sustained a left 3 part intertrochanteric hip fracture. She required surgery. She was medically optimized for surgery. Echocardiogram showed ejection fraction of 75%. She was started on beta blockers. Hip surgery was urgent and expeditiously required in order to prevent complications associated with prolonged immobility. On 03/10/2018, she underwent left hip ORIF. She tolerated procedure well. Surgery was uneventful. She had leukocytosis, possibly reactive from surgery. She was having fever. ID was consulted she was given IV vancomycin and cefepime. Chest x-ray was negative. There was a noted drop in hemoglobin was given 2 units packed RBC blood transfusion. Vital signs stable. She was afebrile. She was taken off antibiotic treatment. Hemoglobin was stable. She was ambulating well with PT and OT. She was discharged to SNF to continue rehabilitation. FINAL DIAGNOSES: Acute hip fracture status post ORIF due to mechanical fall Leukocytosis improving with no signs of sepsis Postop anemia status post blood transfusion Dementia Secondary sinus tachycardia Acute kidney injury Atherosclerotic cardiovascular disease History of hyperlipidemia Review vascular disease with dementia Hypertension DISPOSITION: Patient was discharged to [facility]. DISCHARGE MEDICATIONS: Refer to Discharge Medication List. I have been assigned to dictate discharge summary on this account, and I was not involved in the patient's management. Emily Mcpherson NP Mar 14, 2018 14:04
== END 2018-03-13 21:00 | DRG 481 ==
LOC: EDBD 18:40 → EMR 19:34 → EDBEDREQ 21:53 → 3E 22:05 → EDBEDREQ 23:09
PROC: 0QS704Z Reposition Left Upper Femur with Internal Fixation Device, Open Approach (ICD-10-PCS; principal; 2018-03-10 17:00)
PROC: 30233N1 Transfusion of Nonautologous Red Blood Cells into Peripheral Vein, Percutaneous Approach (ICD-10-PCS; 2018-03-12)
DX: S72.145A Nondisplaced intertrochanteric fracture of left femur, initial encounter for closed fracture (principal); N17.9 Acute kidney failure, unspecified; W18.39XA Other fall on same level, initial encounter; Y92.9 Unspecified place or not applicable; F03.90 Unspecified dementia, unspecified severity, without behavioral disturbance, psychotic disturbance, mood disturbance, and anxiety; I12.9 Hypertensive chronic kidney disease with stage 1 through stage 4 chronic kidney disease, or unspecified chronic kidney disease; N18.9 Chronic kidney disease, unspecified; M81.0 Age-related osteoporosis without current pathological fracture; E78.5 Hyperlipidemia, unspecified; D72.829 Elevated white blood cell count, unspecified; R00.0 Tachycardia, unspecified; E86.1 Hypovolemia; E86.0 Dehydration; R50.82 Postprocedural fever; D50.0 Iron deficiency anemia secondary to blood loss (chronic); I25.10 Atherosclerotic heart disease of native coronary artery without angina pectoris; R73.9 Hyperglycemia, unspecified
CPT/HCPCS: 36415; 71045; 72170; 73502; 76001; 80048; 80053; 81001; 82607; 82746; 83735; 83880; 84443; 85007; 85025; 85610; 85730; 86850; 86900; 86901; 86920; 87040; 87081; 87086; 93005; 93306; 94003; 94150; 94640; 94664; 96361; 96374; 96375; 99285; C9399; J2250; J2405; J7620